=== PATIENT | female | born 1975 | race Caucasian/White ===

== ENCOUNTER 2017-11-29 16:45 | Emergency (ER) | payer OTHER ==
[~2017-11-29] VITALS: Ht 167.6 cm; Wt 64.5 kg
[2017-11-29] MEDS ORDERED: ZOCOR 40MG40 MG PO (17:06)
[2017-11-29] MEDS ORDERED: CYMBALTA 30MG30 MG PO (17:06)
[2017-11-29] MEDS ORDERED: HCTZ 25MG TAB25 MG PO (17:06)
[2017-11-29] MEDS ORDERED: MAG-OX 400400 MG/TAB PO (17:07)
[2017-11-29 17:39] LABS: BASO # 0.1 (0.0-0.2); BASO % 0.3 % (0.0-2.0); EOS % 0.1 % (0-4.0); GRAN # 13.1 (1.4-6.5); GRAN % 84.7 % (42.2-75.2); HEMOGLOBIN 12.2 g/dl (12.5-16.0); LYMPH # 1.3 (1.2-3.4); LYMPH % 8.2 % (20.0-51.0); MEAN CELL VOLUME 82 fl (80.0-100.0); MEAN CORPUSCULAR HEMOGLOBIN 28 pg (27.0-31.0); MEAN CORPUSCULAR HGB CONC 34 g/dl (33.0-37.0); MEAN PLATELET VOLUME 11.2 fl (7.4-10.4); MONO % 6.2 % (1.7-9.3); PLATELET COUNT 191 K/mm3 (130-400); RED BLOOD COUNT 4.37 M/mm3 (4.10-5.30); REDCELL DISTRIBUTION WIDTH-CV 16.2 % (11.5-14.5)
[2017-11-29 17:42] LABS: HEMATOCRIT 35.7 % (37.0-47.0)
[2017-11-29 17:46] LABS: ALBUMIN 4.3 gm/dL (3.5-5.0); BILIRUBIN,TOTAL 0.4 mg/dL (0.0-1.0); CALCIUM 8.8 mg/dL (8.4-10.2); CREATININE, serum 0.78 mg/dL (0.52-1.25); TOTAL PROTEIN 7.5 gm/dL (6.4-8.2)
[2017-11-29 17:55] LABS: POTASSIUM 2.7 mmol/L (3.4-5.0)
[2017-11-29 19:41] LABS: COLLECTION METHOD CLEAN CATCH
[2017-11-29 19:55] LABS: MUCOUS Present /lpf; PH 7 (5-8); URINE APPEARANCE Hazy; URINE BACTERIA Rare /hpf; URINE BILIRUBIN Negative (NEGATIVE); URINE BLOOD 2+ (NEGATIVE); URINE COLOR Yellow; URINE GLUCOSE Negative (NEGATIVE); URINE KETONE Trace (NEGATIVE); URINE LEUKOCYTE ESTERASE Trace (NEGATIVE); URINE NITRATE Negative (NEGATIVE); URINE PROTEIN(semi-quant) Negative (NEGATIVE); URINE UROBILINOGEN Negative (NEGATIVE)
[2017-11-29] MEDS ORDERED: BACTRIM DS 8001 TAB PO ×2 (20:07)
[2017-11-29] MEDS ORDERED: K-DUR 10 MEQ T10 MEQ PO (20:07)
[2017-11-29] MEDS ORDERED: CEPHALEXIN500 M1 PO (20:32)
[2017-11-29 20:33] VITALS: BP 127/83; PULSE 90; TEMP 100.3
== END 2017-11-29 20:39 | disposition home or self-care (01) ==
LOC: COL.ER 16:45
PROVIDERS: Emergency Medicine
DX: J02.9 Acute pharyngitis, unspecified (principal); E87.6 Hypokalemia; I10 Essential (primary) hypertension; E78.5 Hyperlipidemia, unspecified; F17.210 Nicotine dependence, cigarettes, uncomplicated
CPT/HCPCS: J0696; J1885; J7030

== ENCOUNTER 2020-05-22 12:16 | Outpatient (CLI) | payer BC ==
--- NOTE | 2020-05-18 08:56 | NUR ---
LMOM WITH INSTRUCTIONS AND CALL BACK NUMBER
[2020-05-22] VITALS (7 sets, daily range): BP systolic 101–124; BP diastolic 60–78; PULSE 60–82
[~2020-05-22] VITALS: Ht 167.6 cm; Wt 63.0 kg
[~2020-05-22 12:16] MED LIST: BACTRIM DS 8001 TAB PO; CEPHALEXIN500 M1 PO; CYMBALTA 30MG30 MG PO; HCTZ 25MG TAB25 MG PO; K-DUR 10 MEQ T10 MEQ PO; MAG-OX 400400 MG/TAB PO; ZOCOR 40MG40 MG PO
[2020-05-22] MEDS ORDERED: PRINIVIL10 MG PO (12:40)
[2020-05-22] MEDS ORDERED: ZYRTEC 10MG10 MG PO (12:41)
[2020-05-22 14:48] LABS: CSF APPEARANCE CLEAR; CSF COLOR COLORLESS; CSF RBC 0 /mm3 (0-0); GLUCOSE,CSF 70 mg/dL (40-70); TOTAL PROTEIN,CSF 62 mg/dL (15-45)
--- NOTE | 2020-05-22 15:00 | NUR ---
VSS. Red top drawn by lab. Ambulated to bathroom with steady gait. Denies headache and pain at this time. Discharge instructions given. Transferred to private car by
[2020-05-22 15:19] LABS: CSF POLYMORPHONUCLEAR 0 % (0-6)
[2020-05-22 15:20] LABS: CSF MONONUCLEAR 0 % (70-100)
== END 2020-05-22 15:00 | disposition home or self-care (01) ==
LOC: COL.RAD 12:16
PROVIDERS: Psychiatry & Neurology Neurology
DX: G37.9 Demyelinating disease of central nervous system, unspecified (principal); G93.89 Other specified disorders of brain; R90.82 White matter disease, unspecified